=== PATIENT | female | born 1970 | race Caucasian/White ===

== ENCOUNTER 2016-11-02 21:25 | Emergency (ER) | payer OTHER ==
[2016-11-02 21:27] VITALS: BP 116/78
[2016-11-02] MEDS ORDERED: Amoxicillin CAP* 500 MG PO ONE (21:59)
--- NOTE | 2016-11-02 21:59 | UC ---
Throat Pain/Nasal Bharat HPI - History of Current Complaint Chief Complaint: UCRespiratory Stated Complaint: HEADACHE, SORE THROAT, FEVER Time Seen by Provider: 11/02/16 21:54 Hx Obtained From: Patient Hx Last Menstrual Period: 10/11/16 ?: No Onset/Duration: Sudden Onset, Lasting Days, Still Present - 2 Severity: Moderate Pain Intensity: 7 Pain Scale Used: 0-10 Numeric Cough: None Associated Signs & Symptoms: Positive: Fever - Allergies/Home Medications Allergies/Adverse Reactions: Allergies Allergy/AdvReac Type Severity Reaction Status Date / Time No Known Allergies Allergy Verified 11/02/16 21:27 PMH/Surg Hx/FS Hx/Imm Hx Previously Healthy: Yes - Surgical History Surgical History: None - Family History Known Family History: Positive: Hypertension - Social History Occupation: Employed Full-time Lives: With Family Alcohol Use: Rare Substance Use Type: None Smoking Status (MU): Never Smoked Tobacco Have You Smoked in the Last Year: No Review of Systems Constitutional: Fever Skin: Negative Eyes: Negative ENT: Sore Throat Respiratory: Negative Cardiovascular: Negative Gastrointestinal: Negative Genitourinary: Negative Motor: Negative Neurovascular: Negative Musculoskeletal: Negative Neurological: Negative Psychological: Negative All Other Systems Reviewed And Are Negative: Yes Physical Exam Triage Information Reviewed: Yes Appearance: Well-Appearing, No Pain Distress, Well-Nourished Vital Signs: Initial Vital Signs Temp 100.8 F 11/02/16 21:26 Pulse 104 11/02/16 21:26 Resp 16 11/02/16 21:26 BP 116/78 11/02/16 21:26 Pulse Ox 99 11/02/16 21:26 Vital Signs Reviewed: Yes Eye Exam: Normal Eyes: Positive: Conjunctiva Clear ENT Exam: Normal ENT: Positive: Normal ENT inspection, Hearing grossly normal, Pharyngeal erythema, TMs normal. Negative: Nasal congestion, Nasal drainage, Tonsillar swelling, Tonsillar exudate, Trismus, Muffled/hoarse voice Dental Exam: Normal Neck exam: Normal Neck: Positive: Supple, Nontender, No Lymphadenopathy Respiratory Exam: Normal Respiratory: Positive: Chest non-tender, Lungs clear, Normal breath sounds, No respiratory distress, No accessory muscle use Cardiovascular Exam: Normal Cardiovascular: Positive: RRR, No Murmur, Pulses Normal, Brisk Capillary Refill Abdominal Exam: Normal Abdomen Description: Positive: Nontender, No Organomegaly, Soft Bowel Sounds: Positive: Present Musculoskeletal Exam: Normal Musculoskeletal: Positive: Strength Intact, ROM Intact, No Edema Neurological Exam: Normal Neurological: Positive: Alert, Muscle Tone Normal Skin Exam: Normal Throat Pain/Nasal Course/Dx - Course Assessment/Plan: Amoxicillin, ibuprofen, follow with pcp - Differential Dx/Diagnosis Differential Diagnosis/HQI/PQRI: Influenza, Pharyngitis, Sinusitis, URI Provider Diagnoses: strep pharyngitis Discharge - Discharge Plan Condition: Stable Disposition: HOME Prescriptions: Amoxicillin CAP* [Amoxicillin 500 MG CAP*] 500 mg PO Q12H #19 cap Patient Education Materials: Ibuprofen (By mouth), Strep Throat (ED) Referrals: Tommy Aguilera MD [Primary Care Provider] - If Needed
== END 2016-11-02 22:05 | disposition home or self-care (01) ==
LOC: UCEAST 21:25
DX: J02.0 Streptococcal pharyngitis (principal)
CPT/HCPCS: 87651; 99212; A9270-GY; G0463

== ENCOUNTER 2016-12-13 15:27 | Emergency (ER) | payer OTHER ==
[2016-12-13 16:00] VITALS: BP 135/94
[2016-12-13] MEDS ORDERED: predniSONE TAB* 20 MG PO ONE (16:28)
--- NOTE | 2016-12-13 16:41 | UC ---
Skin Complaint HPI - HPI Summary HPI Summary: 45 yo female with painful blistering rash which developed 2 days ago was welani douglas - History of Current Complaint Chief Complaint: UCRash Time Seen by Provider: 12/13/16 16:06 Stated Complaint: RASH Hx Obtained From: Patient Hx Last Menstrual Period: now Onset/Duration: Gradual Onset, Lasting Days Timing: Constant Onset Severity: Mild Current Severity: Moderate Pain Intensity: 4 Location: Other - arms Character: Swelling, Pain, Redness Aggravating: Nothing Alleviating: Nothing - Allergy/Home Medications Allergies/Adverse Reactions: Allergies Allergy/AdvReac Type Severity Reaction Status Date / Time No Known Allergies Allergy Verified 12/13/16 16:00 Review of Systems Constitutional: Negative Skin: Rash Eyes: Negative ENT: Negative Respiratory: Negative Cardiovascular: Negative Gastrointestinal: Negative Genitourinary: Negative Motor: Negative Neurovascular: Negative Musculoskeletal: Negative Neurological: Negative Psychological: Negative All Other Systems Reviewed And Are Negative: Yes PMH/Surg Hx/FS Hx/Imm Hx Previously Healthy: Yes Respiratory History: Asthma - Surgical History Surgical History: None - Family History Known Family History: Positive: Hypertension Negative: Cardiac Disease, Diabetes - Social History Alcohol Use: Occasionally Substance Use Type: None Smoking Status (MU): Never Smoked Tobacco Have You Smoked in the Last Year: No Physical Exam Triage Information Reviewed: Yes Appearance: Well-Appearing, No Pain Distress, Well-Nourished Vital Signs: Initial Vital Signs Temp 98.0 F 12/13/16 15:57 Pulse 90 12/13/16 15:57 Resp 12 12/13/16 15:57 BP 135/94 12/13/16 15:57 Pulse Ox 100 12/13/16 15:57 Eyes: Positive: Conjunctiva Clear ENT: Positive: Hearing grossly normal. Negative: Nasal congestion, Nasal drainage, Trismus, Muffled/hoarse voice Neck: Positive: Supple Respiratory: Positive: No respiratory distress, No accessory muscle use Cardiovascular: Positive: RRR Musculoskeletal: Positive: ROM Intact, No Edema Neurological: Positive: Alert Psychological Exam: Normal Skin: Positive: rashes - blistering rash both forearms L>R Course/Dx - Course Course Of Treatment: advised of need to recheck BP - Diagnoses Provider Diagnoses: phytophotodermatitis. elevated BP without dx of hypertension Discharge - Discharge Plan Condition: Stable Disposition: HOME Prescriptions: Prednisone 40 - 60 mg PO DAILY #14 tab Patient Education Materials: Phytophotodermatitis (ED) Referrals: Tommy Aguilera MD [Primary Care Provider] - 2 Weeks Additional Instructions: cool compresses with lizz solution any raw open areas can be covered with a thin film of aquaphor healing ointment this is like a burn and your skin will be sensitive to sun for the remainder of the summer/fall the final result will be 6-8 months from now sometimes this can result in hyperpigmentation so at some point you may need to see a machine set up recheck for concerns of infection
== END 2016-12-13 16:44 | disposition home or self-care (01) ==
LOC: UCEAST 15:27
DX: L57.8 Other skin changes due to chronic exposure to nonionizing radiation (principal); R03.0 Elevated blood-pressure reading, without diagnosis of hypertension
CPT/HCPCS: 99212; G0463; J7512